=== PATIENT | male | born 1980 | race Caucasian/White ===

== ENCOUNTER → 2018-11-04 | Outpatient (CLI) | payer BC ==
--- NOTE | 2018-11-04 19:20 | Diagnostic Imaging Report ---
EXAMINATION: Modified barium swallow. INDICATION: Difficulty swallowing. This study was performed in the presence of the speech pathologist, Brooke. The patient was given barium in different substances to swallow. This included thin, apple sauce, puree, mechanical soft, and chopped meat. The patient was also given a barium impregnated cracker to swallow. He was able to swallow the materials without difficulty. There was no aspiration or penetration. IMPRESSION: The patient exhibits a normal swallowing mechanism. There is no evidence for aspiration or penetration. Dictated by: Dictated on workstation # [id number]
== END ==
LOC: RAD 10:08
PROVIDERS: ATTEND Family Medicine
DX: R13.10 Dysphagia, unspecified (principal)
CPT/HCPCS: 74230

== ENCOUNTER → 2019-08-15 | Outpatient (CLI) | payer BC ==
--- NOTE | 2019-08-15 17:46 | Diagnostic Imaging Report ---
PATIENT HISTORY: Dyspnea, cough. TECHNIQUE: Two views of the chest. COMPARISON: None. FINDINGS: The lung volumes are normal. No focal consolidation is seen. No large pleural effusion or pneumothorax is seen. The cardiomediastinal silhouette is normal in size and contour. No acute osseous abnormality is seen. IMPRESSION: No acute pulmonary abnormality seen. Dictated by: Dictated on workstation # [id number]
== END ==
LOC: RAD 16:56
PROVIDERS: ATTEND Nurse Practitioner Family
DX: R06.00 Dyspnea, unspecified (principal); R05 Cough
CPT/HCPCS: 71046

== ENCOUNTER 2020-12-10 20:34 | Emergency (ER) | payer BC ==
[~2020-12-10] VITALS: Ht 182.8 cm; Wt 81.6 kg
[2020-12-10 20:54] LABS: BASOPHILS # (AUTO) 0.1 10^3/uL (0.0-0.1); BASOPHILS % (AUTO) 1 % (0-10); EOSINOPHILS # (AUTO) 0.2 10^3/uL (0.0-0.3); EOSINOPHILS % (AUTO) 3 % (0-10); HEMATOCRIT 46 % (40-54); LYMPHOCYTES # (AUTO) 2.4 10^3/uL (1.0-4.0); LYMPHOCYTES % (AUTO) 27 % (12-44); MEAN CORPUSCULAR HEMOGLOBIN 31 pg (25-34); MEAN CORPUSCULAR HGB CONC 35 g/dL (32-36); MEAN CORPUSCULAR VOLUME 89 fL (80-99); MEAN PLATELET VOLUME 9.1 fL (9.0-12.2); MONOCYTES # (AUTO) 0.6 10^3/uL (0.0-1.0); MONOCYTES % (AUTO) 7 % (0-12); NEUTROPHILS # (AUTO) 5.5 10^3/uL (1.8-7.8); NEUTROPHILS % (AUTO) 62 % (42-75); PLATELET COUNT 359 10^3/uL (130-400); WHITE BLOOD COUNT 8.8 10^3/uL (4.3-11.0)
--- NOTE | 2020-12-10 20:56 | ED Chest Pain ---
General Chief Complaint: Chest Pain Stated Complaint: CP, TUNNEL VISION Source: patient Exam Limitations: no limitations History of Present Illness Date Seen by Provider: Dec 10, 2020 Time Seen by Provider: 20:40 Initial Comments Patient presents to the ER by private conveyance with chief complaint couple hours ago he was driving his child home on the road and he felt an asthma attack tightness of chest and shortness of air. He took a few puffs of albuterol and then he said he felt his vision narrow and had some tingling and pain in his left shoulder/anterior chest. He ended up having to take a second round of albuterol after he got home. He says in the past when he takes his albuterol he will get visual narrowing and sometimes even blacked out. 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 No history of coronary disease. No history of early onset coronary disease in the family. His mother is with pulmonary embolisms. He thinks he may have had Covid in August but never got tested. He did get his vaccinations for COVID-19 a few weeks ago. No fevers chills cough. He is no longer having shortness of air. No tingling or numbness in the fingers or perioral area. He does not smoke drink or use drugs. No history of coronary artery disease, hypertension, hyperlipidemia, diabetes. Allergies and Home Medications Allergies Coded Allergies: glycerin (Verified Allergy, Mild, pos on allergy testing, 12/10/20) Patient Home Medication List Home Medication List Reviewed: Yes Review of Systems Review of Systems Constitutional: No chills; dizziness; No fever, No malaise EENTM: No Blurred Vision, No Double Vision Respiratory: Denies Cough; Shortness of Air, Wheezing Cardiovascular: See HPI, Chest Pain; Denies Edema, Denies Irregular Heart Rate, Denies Palpitations, Denies Syncope Gastrointestinal: Denies Abdomen Distended, Denies Abdominal Pain, Denies Nausea Genitourinary: Denies Burning, Denies Discharge Musculoskeletal: No back pain, No joint pain Psychiatric/Neurological: Anxiety; Denies Depressed All Other Systems Reviewed Negative Unless Noted: Yes Past Nlrtddd-Tbslau-Acvljz Hx Patient Social History Alcohol Use: Denies Use Drug of Choice: Denies Smoking Status: Never a Smoker Physical Exam Vital Signs Vital Signs - First Documented 12/10/20 20:39 Temp 36.6 Pulse 127 Resp 28 B/P (MAP) 172/120 (137) Pulse Ox 97 O2 Delivery Room Air Capillary Refill : Height, Weight, BMI Height: '" Weight: lbs. oz. kg; BMI Method: General Appearance: WD/WN, Anxious HEENT: PERRL/EOMI, Pharynx Normal, Moist Mucous Membranes Neck: Full Range of Motion, Normal Inspection, Non Tender Respiratory: No Chest Non Tender (Chest discomfort reproduced by direct palpation and movement of his left arm.); Lungs Clear, Normal Breath Sounds, No Accessory Muscle Use, No Respiratory Distress (100% on room air with respiratory rate of 16-18) Cardiovascular: Regular Rate, Rhythm, Normal Peripheral Pulses Gastrointestinal: Normal Bowel Sounds, Non Tender, Soft Extremity: Normal Capillary Refill, Normal Inspection, Normal Range of Motion, No Pedal Edema Neurologic/Psychiatric: Alert, Oriented x3 Skin: Normal Color, Warm/Dry Progress/Results/Core Measures Results/Orders Lab Results Laboratory Tests Test 12/10/20 20:45 12/10/20 20:48 12/10/20 22:35 Range/Units White Blood Count 8.8 4.3-11.0 10^3/uL Red Blood Count 5.20 4.30-5.52 10^6/uL Hemoglobin 16.0 13.3-17.7 g/dL Hematocrit 46 40-54 % Mean Corpuscular Volume 89 80-99 fL Mean Corpuscular Hemoglobin 31 25-34 pg Mean Corpuscular Hemoglobin Concent 35 32-36 g/dL Red Cell Distribution Width 12.0 10.0-14.5 % Platelet Count 359 130-400 10^3/uL Mean Platelet Volume 9.1 9.0-12.2 fL Immature Granulocyte % (Auto) 0 % Neutrophils (%) (Auto) 62 42-75 % Lymphocytes (%) (Auto) 27 12-44 % Monocytes (%) (Auto) 7 0-12 % Eosinophils (%) (Auto) 3 0-10 % Basophils (%) (Auto) 1 0-10 % Neutrophils # (Auto) 5.5 1.8-7.8 10^3/uL Lymphocytes # (Auto) 2.4 1.0-4.0 10^3/uL Monocytes # (Auto) 0.6 0.0-1.0 10^3/uL Eosinophils # (Auto) 0.2 0.0-0.3 10^3/uL Basophils # (Auto) 0.1 0.0-0.1 10^3/uL Immature Granulocyte # (Auto) 0.0 0.0-0.1 10^3/uL Prothrombin Time 12.8 12.2-14.7 SEC INR Comment 0.9 0.8-1.4 Activated Partial Thromboplast Time 30 24-35 SEC D-Dimer <= 0.27 0.00-0.49 UG/ML Sodium Level 141 135-145 MMOL/L Potassium Level 3.6 3.6-5.0 MMOL/L Chloride Level 102 98-107 MMOL/L Carbon Dioxide Level 23 21-32 MMOL/L Anion Gap 16 H 5-14 MMOL/L Blood Urea Nitrogen 10 7-18 MG/DL Creatinine 0.99 0.60-1.30 MG/DL Estimat Glomerular Filtration Rate > 60 BUN/Creatinine Ratio 10 Glucose Level 103 70-105 MG/DL Calcium Level 9.3 8.5-10.1 MG/DL Corrected Calcium 8.9 8.5-10.1 MG/DL Magnesium Level 2.1 1.6-2.4 MG/DL Total Bilirubin 0.6 0.1-1.0 MG/DL Aspartate Amino Transf (AST/SGOT) 22 5-34 U/L Alanine Aminotransferase (ALT/SGPT) 31 0-55 U/L Alkaline Phosphatase 71 40-136 U/L Myoglobin 57.8 10.0-92.0 NG/ML Troponin I < 0.028 < 0.028 <0.028 NG/ML Total Protein 7.8 6.4-8.2 GM/DL Albumin 4.5 3.2-4.5 GM/DL Blood Gas Puncture Site RIGHT RADIAL Blood Gas Patient Temperature 36.6 Arterial Blood pH 7.48 H 7.37-7.43 Arterial Blood Partial Pressure CO2 34 L 35-45 MMHG Arterial Blood Partial Pressure O2 111 H 79-93 MMHG Arterial Blood HCO3 25 23-27 MMOL/L Arterial Blood Total CO2 26.4 21.0-31.0 MMOL/L Arterial Blood Oxygen Saturation 99 94-100 % Arterial Blood Base Excess 2.0 -2.5-2.5 MMOL/L Zion Test YES-POS Blood Gas Ventilator Setting NO Blood Gas Inspired Oxygen ROOM AIR My Orders Orders - JOE WILLIS Cbc With Automated Diff (12/10/20 20:48) Magnesium (12/10/20 20:48) Chest 1 View, Ap/Pa Only (12/10/20 20:48) Ekg Tracing (12/10/20 20:48) Comprehensive Metabolic Panel (12/10/20 20:48) Myoglobin Serum (12/10/20 20:48) Protime With Inr (12/10/20 20:48) Partial Thromboplastin Time (12/10/20 20:48) O2 (12/10/20 20:48) Monitor-Rhythm Ecg Trace Only (12/10/20 20:48) Lipid Panel (12/11/20 06:00) Ed Iv/Invasive Line Start (12/10/20 20:48) Troponin I (12/10/20 20:48) Aspirin Chewable Tablet (Baby Aspirin Ch (12/10/20 21:00) Nitroglycerin 0.4 Mg Btl 25's (Nitrostat (12/10/20 21:00) Arterial Blood Gas (12/10/20 20:49) Fibrin Degradation Products (12/10/20 20:45) Troponin I (12/10/20 22:30) Ed Iv/Invasive Line Start (12/10/20 21:37) Ns Iv 500 Ml (Sodium Chloride 0.9%) (12/10/20 21:45) Medications Given in ED Current Medications Medications Dose Ordered Sig/Brenda Route Start Time Stop Time Status Last Admin Dose Admin Aspirin 324 mg ONCE ONCE PO 12/10/20 21:00 12/10/20 21:01 DC 12/10/20 21:12 324 MG Sodium Chloride 500 ml @ 0 mls/hr Q0M ONCE IV 12/10/20 21:45 12/10/20 21:46 DC 12/10/20 21:44 0 MLS/HR Vital Signs/I&O 12/10/20 20:39 Temp 36.6 Pulse 127 Resp 28 B/P (MAP) 172/120 (137) Pulse Ox 97 O2 Delivery Room Air Progress Progress Note : Time: 20:53 Progress Note With his symptoms seem to get worse after the albuterol I would suspect he is having a little hypoxia relatively and blew off all of his CO2 causing him to be in an alkalotic state. We will get an ABG and some labs. We will give him some aspirin to control for possible coronary disease and plan on repeating a delta troponin in 2 to 3 hours which would be about 5 hours after symptoms start with his first troponin is negative. We will obtain a chest x-ray and try some nitroglycerin. He says he is never had any reactions to glycerin and foods that he is eating so I think he will be fine taking nitroglycerin. His blood pressure significantly elevated 170/100. He appears anxious. Another possibility could be linked to his esophagitis which may improve with nitroglycerin. Middle suspicion for pulmonary embolism since he has some family history and may have had a viral pneumonia a few months ago so we will get a D-dimer. Initial ECG Impression Date: Dec 10, 2020 Initial ECG Impression Time: 20:41 Initial ECG Rate: 101 Initial ECG Rhythm: S.Tach Initial ECG Intervals: Normal Initial ECG Impression: Normal Initial ECG Comparisson: No Previous ECG Available Comment Normal sinus tachycardia without clinically relevant ST elevation or depression. Some mild respiratory artifact. Diagnostic Imaging Diagonstic Imaging: Xray Plain Films/CT/US/NM/MRI: chest Comments No acute cardiopulmonary processes noted. 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 [facility] [place], [place] NAME: LULA LOBO [facility] REC#: [id number] PT STATUS: REG ER : 1980 PHYSICIAN: JOE WILLIS MD ADMIT DATE: 12/10/20/ER Signed Date of Exam:12/10/20 CHEST 1 VIEW, AP/PA ONLY CHEST 1 VIEW, AP/PA ONLY Indication: Chest pain. Comparison: 08/15/2019 Findings: No focal airspace disease in the visualized lungs. Please note that the posterior lower lobes are poorly evaluated by portable radiography. No pleural effusion or pneumothorax. Normal cardiomediastinal silhouette. Impression: 1. No acute cardiopulmonary process by portable radiography. Dictated by: Dictated on workstation # [id number] Dict: 12/10/202106 Trans: 12/10/202106 [facility] [id number] Interpreted by: CHACHA KONG MD Electronically signed by: CHACHA KONG MD 12/10/202106 Reviewed: Reviewed by Me Departure Impression Primary Impression: Asthma attack Qualified Codes: J45.901 - Unspecified asthma with (acute) exacerbation Additional Impression: Panic attack Disposition: 01 HOME, SELF-CARE Condition: Stable Departure-Patient Inst. Decision time for Depature: 23:25 Referrals: EDDIE GOODMAN MD, RACHEL L MD (PCP/Family) Primary Care Physician Patient Instructions: Chest Pain That Is Not Caused by the Heart (DC), Anxiety, Adult (DC) Add. Discharge Instructions: I suspect that the combination of your caffeine, asthma medications and anxiety drove the CO2 levels low putting you in an alkalotic state which made you feel like a panic attack. It is important to control your breathing and slow it down when you are managing your asthma. Follow-up with your primary care doctor in the next 2 to 4 weeks to discuss this and make sure you are on appropriate treatment. If you would like to call for an appointment in the next 1 [address] Schwab, cardiology you may call him at his clinic and request an appointment tomorrow morning. All discharge instructions reviewed with patient and/or family. Voiced understanding. Copy Copies To 1: EDDIE GOODMAN MD, TITUS J Dec 10, 2020 20:56
[2020-12-10] MEDS ORDERED: ASPIRIN 81 MG CHEW (CHILDREN'S ASA) PO ONE (21:00)
[2020-12-10] MEDS ORDERED: NITROGLYCERIN 0.4 MG SL TABS BTL 25'S SL PRN (21:00)
[2020-12-10 21:02] LABS: ABG OXYGEN SATURATION 99 % (94-100); ABG PCO2 34 MMHG (35-45); ABG PH 7.48 (7.37-7.43); ABG PO2 111 MMHG (79-93); ABG TCO2 26.4 MMOL/L (21.0-31.0)
[2020-12-10 21:05] LABS: ALBUMIN 4.5 GM/DL (3.2-4.5)
[2020-12-10 21:06] LABS: ALLENS TEST YES-POS; INSPIRED O2 ROOM AIR; PATIENT TEMP 36.6; VENTILATOR NO
[2020-12-10 21:06] LABS: CHLORIDE 102 MMOL/L (98-107); POTASSIUM 3.6 MMOL/L (3.6-5.0); SODIUM 141 MMOL/L (135-145)
[2020-12-10 21:07] LABS: CALCIUM 9.3 MG/DL (8.5-10.1)
[2020-12-10 21:08] LABS: GLUCOSE 103 MG/DL (70-105); TOTAL PROTEIN 7.8 GM/DL (6.4-8.2)
[2020-12-10 21:09] LABS: CARBON DIOXIDE 23 MMOL/L (21-32)
--- NOTE | 2020-12-10 21:09 | Diagnostic Imaging Report ---
CHEST 1 VIEW, AP/PA ONLY Indication: Chest pain. Comparison: 08/15/2019 Findings: No focal airspace disease in the visualized lungs. Please note that the posterior lower lobes are poorly evaluated by portable radiography. No pleural effusion or pneumothorax. Normal cardiomediastinal silhouette. Impression: 1. No acute cardiopulmonary process by portable radiography. Dictated by: Dictated on workstation # [id number]
[2020-12-10 21:10] LABS: BILIRUBIN,TOTAL 0.6 MG/DL (0.1-1.0)
[2020-12-10 21:11] LABS: ALKALINE PHOSPHATASE 71 U/L (40-136)
[2020-12-10 21:12] LABS: CREATININE SERUM 0.99 MG/DL (0.60-1.30); GFR ESTIMATED > 60
[2020-12-10 21:13] LABS: BUN/CREATININE RATIO 10
[2020-12-10 21:15] LABS: ALANINE AMINOTRANSFERASE 31 U/L (0-55); MAGNESIUM 2.1 MG/DL (1.6-2.4)
[2020-12-10 21:25] LABS: FIBRIN DEGRADATION PRODUCTS <= 0.27 UG/ML (0.00-0.49); INR 0.9 (0.8-1.4); PARTIAL THROMBOPLASTIN TIME 30 SEC (24-35); PROTHROMBIN TIME PATIENT 12.8 SEC (12.2-14.7)
[2020-12-10] MEDS ORDERED: NS IV 500 ML 500 ML IV ONE (21:45)
[2020-12-10 23:35] VITALS: BP 132/93
== END 2020-12-10 23:35 | disposition home or self-care (01) ==
LOC: EDUNIT# 20:34 → ER 20:37
DX: J45.901 Unspecified asthma with (acute) exacerbation (principal); F41.0 Panic disorder [episodic paroxysmal anxiety]
CPT/HCPCS: 36415; 71045; 80053; 82805; 83735; 83874; 84484; 85025; 85379; 85610; 85730; 93005; 93041

== ENCOUNTER → 2021-04-08 | Outpatient (CLI) | payer BC ==
[2021-04-08 09:23] VITALS: BP 124/79
== END ==
LOC: CARD 09:00
PROVIDERS: ATTEND Nurse Practitioner Family
DX: R07.89 Other chest pain (principal)
CPT/HCPCS: 93306; 93351

== ENCOUNTER 2022-12-21 20:19 | Day surgery (SDC) | payer BC ==
--- NOTE | 2022-12-21 20:37 | ED GI ---
General Chief Complaint: Foreign Body Stated Complaint: LODGED FOOD Source of Information: Patient History of Present Illness Date Seen by Provider: Dec 21, 2022 Time Seen by Provider: 20:31 Initial Comments PT ARRIVES VIA POV FROM HOME STATES THAT HE HAS FOOD STUCK IN HIS ESOPHAGUS ATE A POP TART AROUND 1699 AND DID NOT HAVE ANY PROBLEMS AROUND 1999, HE ATE CINNAMON ROLLS FROM [employer], AND SOME PEANUTS--AND FOOD IS NOW STUCK, AND HE CANNOT SWALLOW SALIVA--IS CONSTANTLY SPITTING OUT SALIVA. HE IS VERY ANXIOUS AND CONCERNED HE WILL ASPIRATE. HE IS NOT COUGHING OR HAVING SHORTNESS OF BREATH OR WHEEZING. HE HAS HAD THIS SEVERAL TIMES IN THE PAST, USUALLY WILL EVENTUALLY PASS ON IT'S OWN HE DID HAVE TO HAVE REMOVAL OF FOOD BOLUS AND ESOPHAGEAL DILATION ONCE--IN 2009. HE WAS TOLD SEVERAL YEARS AGO THAT HE HAS EOSINOPHILIC ESOPHAGITIS. HE BELIEVES THAT CORN WORSENS THIS PROBLEM. HE TAKES OMEPRAZOLE DAILY NO OTHER CHRONIC PROBLEMS. PCP: DR. FISHER--RECENTLY STARTED SEEING HER Allergies and Home Medications Allergies Coded Allergies: glycerin (Verified Allergy, Mild, pos on allergy testing, 12/10/20) Patient Home Medication List Home Medication List Reviewed: Yes Review of Systems Review of Systems Constitutional: see HPI Respiratory: No Symptoms Reported; Denies Cough, Denies Shortness of Air Cardiovascular: No Symptoms Reported Gastrointestinal: See HPI Musculoskeletal: no symptoms reported Psychiatric/Neurological: See HPI, Anxiety Past Dozcpsh-Nklkql-Iqhsdg Hx Patient Social History Tobacco Use?: No Substance use?: No Alcohol Use?: No Seasonal Allergies Seasonal Allergies: Yes Past Medical History Surgeries: Yes (dental, colonoscopy, EGD'S WITH ESOPHAGEAL DILATION) Respiratory: Yes Asthma Cardiac: No Neurological: No Genitourinary: No Gastrointestinal: Yes (ESOPHAGEAL DILATION; EOSINOPHILIC ESOPHAGITIS) Gastroesophageal Reflux, Esophagitis Musculoskeletal: No Endocrine: No HEENT: No Cancer: No Psychosocial: No Integumentary: No Blood Disorders: No Physical Exam Vital Signs Vital Signs - First Documented Capillary Refill : Height/Weight/BMI Height: '" Weight: lbs. oz. 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 tested, no motor/sensory deficits, alert, oriented x 3 Skin: normal color, warm/dry Progress/Results/Core Measures Results/Orders My Orders Orders - OSCAR MORENO DO Ed Iv/Invasive Line Start (12/21/22 20:36) Monitor-Rhythm Ecg Trace Only (12/21/22 20:36) Glucagon Emergency Kit (Glucagon Emergen (12/21/22 20:45) Glucagon Emergency Kit (Glucagon Emergen (12/21/22 21:00) Medications Given in ED Current Medications Medications Dose Ordered Sig/Brenda Route Start Time Stop Time Status Last Admin Dose Admin Glucagon 1 mg ONCE ONCE IV 12/21/22 20:45 12/21/22 20:46 DC 12/21/22 20:46 1 MG Glucagon 1 mg ONCE ONCE IV 12/21/22 21:00 12/21/22 21:01 DC 12/21/22 21:04 1 MG Vital Signs/I&O 12/21/22 12/21/22 20:31 20:31 Temp 36.8 Pulse 96 Resp 16 B/P (MAP) 150/111 (124) Pulse Ox 97 O2 Delivery Room Air Room Air Progress Progress Note : Progress Note GIVEN GLUCAGON X 2 DOSES--NO RELIEF ALSO GIVEN PEPCID FOR HISTORY OF EOSINOPHILIC ESOPHAGITIS NO DETERIORATION IN PT'S CONDITION. DISCUSSED ANTICIPATED COURSE, NEED FOR ENDOSCOPY AND PT IS AGREEABLE TO PLAN Departure Communication (Admissions) 2121--SPOKE WITH DR. GABRIEL, WILL BE IN TO SEE PT. ADVISES TO HAVE SCREENER OPERATOR CALL IN GI LAB CREW. 2138--DR. GABRIEL HERE 2205--GI LAB STAFF HERE. Impression Primary Impression: Esophageal obstruction due to food impaction Additional Impression: HX OF EOSINOPHILIC ESOPHAGITIS Disposition: ADMITTED INPATIENT (TO GI LAB/OR) Condition: Stable Admissions Decision to Admit Reason: Admit from ER (General) (TO SURGERY/GI LAB) Decision to Admit/Date: Dec 21, 2022 Time/Decision to Admit Time: 21:25 Departure-Patient Inst. Referrals: MARGARET MCMILLAN MD (PCP/Family) Primary Care Physician OSCAR MORENO DO Dec 21, 2022 20:37
[2022-12-21] MEDS ORDERED: GLUCAGON EMERGENCY 1 MG/KIT IV ONE ×2 (20:45→21:00)
[2022-12-21] MEDS ORDERED: FAMOTIDINE 20MG/2ML IV (PEPCID) IVP ONE (21:45)
[2022-12-21] MEDS ORDERED: ONDANSETRON 4 MG/2 ML (SDV) Z0FRAN ONE (22:00)
[2022-12-21] MEDS ORDERED: SUCCINYLCHOLINE INJ 20 MG/1 ML 10 ML VIAL ONE (22:00)
[2022-12-21] MEDS ORDERED: MIDAZOLAM 2 MG/2 ML (VERSED) VIAL ONE (22:00)
[2022-12-21] MEDS ORDERED: fentaNYL INJ 100 MCG/2 ML AMP ONE (22:00)
[2022-12-21] MEDS ORDERED: LIDOCAINE PF 2% 5 ML (XYLOCAINE) VIAL ONE (22:00)
[2022-12-21] MEDS ORDERED: proPOfol 200 MG/20 ML (DIPRIVAN) VIAL IV ONE (22:00)
--- NOTE | 2022-12-21 22:30 | Consultation - Surgery ---
History of Present Illness History of Present Illness Patient Consulted On(rik/time) 12/21/22 22:25 Date Seen by Provider: Dec 21, 2022 Time Seen by Provider: 22:25 History of Present Illness Consult requested for food bolus. Patient is a 42 year old male who was eating cinnamon roll and peanuts and not able to get them to go down. Unable to swallow secretions and having to spit them out. No abdominal pain. Has had occurred previously where had to have endoscopy. Had occurred randomly but able to get to go down. Typically with breads. Denies n/v fever sweats chills shortness of breath or chest pain. Allergies and Home Medications Allergies Coded Allergies: glycerin (Verified Allergy, Mild, pos on allergy testing, 12/10/20) Patient Home Medication List Home Medication List Reviewed: Yes (claritin and omeprazole) Past Bswuhpc-Rzrelt-Stctqw Hx Patient Social History Drug of Choice: Denies Smoking Status: Never a Smoker Recent Hopitalizations: No Alcohol Use?: No Seasonal Allergies Seasonal Allergies: Yes Surgeries History of Surgeries: Yes (dental, colonoscopy, EGD'S WITH ESOPHAGEAL DILATION) Respiratory History of Respiratory Disorde: Yes Respiratory Disorders: Asthma Cardiovascular History of Cardiac Disorders: No Neurological History of Neurological Disord: No Genitourinary History of Genitourinary Disor: No Gastrointestinal History of Gastrointestinal Di: Yes (ESOPHAGEAL DILATION; EOSINOPHILIC ESOPHAGITIS) Gastrointestinal Disorders: Gastroesophageal Reflux, Esophagitis Musculoskeletal History of Musculoskeletal Dis: No Endocrine History of Endocrine Disorders: No HEENT History of HEENT Disorders: No Cancer History of Cancer: No Psychosocial History of Psychiatric Problem: No Integumentary History of Skin or Integumenta: No Blood Transfusions History of Blood Disorders: No Reviewed Nursing Assessment Reviewed/Agree w Nursing PMH: Yes Family Medical History Significant Family History: No Pertinent Family Hx Review of Systems-General Constitutional: No chills, No diaphoresis EENTM: No blurred vision, No double vision Respiratory: No cough, No dyspnea on exertion Cardiovascular: No chest pain, No palpitations Gastrointestinal: No abdominal pain; nausea, vomiting Genitourinary: No decreased output, No discharge Musculoskeletal: No back pain, No joint pain Skin: No change in color, No change in hair/nails Psychiatric/Neurological: Denies Anxiety, Denies Depressed, Denies Emotional Problems All Other Systems Reviewed Negative Unless Noted: Yes (Negative excepted noted.) Physical Exam-General Problems Physical Exam Vital Signs Vital Signs - First Documented Capillary Refill : Less Than 3 Seconds General Appearance: WD/WN, no apparent distress, thin HEENT: PERRL/EOMI, normal ENT inspection Neck: non-tender, supple Respiratory: chest non-tender, no respiratory distress, no accessory muscle use Cardiovascular: regular rate, rhythm, no JVD Gastrointestinal: non tender, soft Rectal: deferred Back: no CVA tenderness, no vertebral tenderness Extremities: non-tender, normal inspection Neurologic/Psychiatric: alert, normal mood/affect, oriented x 3 Skin: normal color, warm/dry Lymphatic: no adenopathy Assessment/Plan Assessment/Plan Assessment/Plan food bolus hx eosinophilic esophagitis patient discussed risks and benefits of egd and all other indicated procedures he understands and wishes to proceed. discussed may need repeat egd in near future to dilate or biopsy if needed NPO To OR for EGD. Liquids 2 days then slowly advance as tolerates after procedure. DANNY GABRIEL DO Dec 21, 2022 22:30
[2022-12-21 22:35] VITALS: BP 160/95
--- NOTE | 2022-12-21 22:54 | Discharge Inst-Simple/Standard ---
Discharge Inst-Standard Patient Instructions/Follow Up Plan of Care/Instructions/FU: 1-2 weeks sharon Activity as Tolerated: Yes Discharge Diet: Liquid Diet (2 days then slowly advance as tolerates.) DANNY GABRIEL DO Dec 21, 2022 22:54
== END 2022-12-21 23:10 | disposition home or self-care (01) ==
LOC: EDUNIT# 20:19 → ER 20:22 → SDC 21:33
PROVIDERS: ATTEND Surgery
DX: T18.128A Food in esophagus causing other injury, initial encounter (principal); K20.0 Eosinophilic esophagitis
CPT/HCPCS: 93041

== ENCOUNTER 2023-01-20 05:41 | Outpatient (CLI) | payer BC ==
[~2023-01-20] VITALS: Ht 182.9 cm; Wt 83.9 kg
[2023-01-21] MEDS ORDERED: CHLO-159 PO (11:22)
[2023-01-21] MEDS ORDERED: OMEP20TA56 PO (11:22)
[2023-01-21] MEDS ORDERED: RT-ALBUINH INH (11:22)
[2023-01-21] MEDS ORDERED: FLUT1DIS27 IH (11:22)
[2023-01-21] MEDS ORDERED: CETI10TA17 PO (11:22)
[2023-01-21] MEDS ORDERED: MULT-1136 PO (11:22)
[2023-01-21] MEDS ORDERED: FLUT9.9S NS (11:22)
== END 2023-01-21 11:27 | disposition home or self-care (01) ==
LOC: PREOP 05:41
PROVIDERS: ATTEND Surgery
DX: Z01.818 Encounter for other preprocedural examination (principal)

== ENCOUNTER → 2023-01-20 | Outpatient (CLI) | payer BC ==
[~2023-01-20] MED LIST: BARIUM for suspension 96% w/w (Vanilla Silq Medium Density) PO ONE; BARIUM for suspension 98% w/w (Vanilla Silq High Density) PO ONE; CETI10TA17 PO; CHLO-159 PO; FLUT1DIS27 IH; FLUT9.9S NS; MULT-1136 PO; OMEP20TA56 PO; RT-ALBUINH INH
--- NOTE | 2023-01-20 16:51 | Diagnostic Imaging Report ---
INDICATION: Difficulty swallowing and esophagitis. Patient ingested effervescent crystals followed by liquid barium under fluoroscopic observation. Prior to contrast, strategic accounts manager radiograph reveals no definite mediastinal abnormality. Swallow motion is unremarkable without evidence of aspiration or penetration. The esophagus is of normal caliber. No persistent stricture or mass is seen. No mucosal irregularity is detected. With Valsalva maneuver, there is mild sliding-type hiatal hernia with only minimal gastroesophageal reflux. IMPRESSION: Mild sliding-type hiatal hernia occurred with Valsalva maneuver. Otherwise, esophagus is unremarkable in appearance. Dictated by: Dictated on workstation # [id number]
== END ==
LOC: RAD 10:00
PROVIDERS: ATTEND Nurse Practitioner
DX: K44.9 Diaphragmatic hernia without obstruction or gangrene (principal)
CPT/HCPCS: 74220

== ENCOUNTER 2023-02-02 07:28 | Day surgery (SDC) | payer BC ==
[~2023-02-02] VITALS: Ht 182.9 cm; Wt 83.9 kg
[~2023-02-02 07:28] MED LIST changes: -BARIUM for suspension 96% w/w (Vanilla Silq Medium Density) PO ONE; -BARIUM for suspension 98% w/w (Vanilla Silq High Density) PO ONE
[2023-02-02] MEDS ORDERED: LACTATED RINGERS 1,000 ML IV STA (07:39)
[2023-02-02 07:45] VITALS: BP 119/83
[2023-02-02] MEDS ORDERED: HURRICAINE EXT TUBE (BENZOCAINE) XX PRN (07:45)
[2023-02-02] MEDS ORDERED: PROPOFOL INJECTION 50 ML IV ONE (09:20)
[2023-02-02] MEDS ORDERED: MIDAZOLAM 2 MG/2 ML (VERSED) VIAL ONE (09:20)
[2023-02-02 09:35] VITALS: BP 114/68
[2023-02-02] MEDS ORDERED: SUCR1TAB36 PO (09:38)
[2023-02-02] MEDS ORDERED: PANT40TA2 PO (09:38)
--- NOTE | 2023-02-02 09:39 | Discharge Inst-Simple/Standard ---
Discharge Inst-Standard Discharge Medications New, Converted or Re-Newed RX: Transmitted to Pharmacy Patient Instructions/Follow Up Plan of Care/Instructions/FU: 2 weeks Anthony Activity as Tolerated: Yes Discharge Diet: Regular Diet DANNY GABRIEL DO February 02, 2023 09:39
[2023-02-02 09:40] VITALS: BP 114/60
--- NOTE | 2023-02-02 09:41 | Progress Note-Post Operative ---
Post-Operative Progess Note Surgeon (s)/Branch Office Manager (s) Surgeon DANNY GABRIEL DO Branch Office Manager: na Pre-Operative Diagnosis dysphagia Post-Operative Diagnosis reflux esophagitis and small ulceration at ge Procedure & Operative Findings Date of Procedure 02/02/23 Procedure Performed/Findings egd c dilation and biopsies Anesthesia Type per multiple drum sander Estimated Blood Loss Estimated blood loss (mL): none Specimens/Packing Specimens Removed antrum, ge DANNY GABRIEL DO February 02, 2023 09:41
[2023-02-02 09:44] VITALS: BP 109/64
[2023-02-02 09:50] VITALS: BP 107/62
[2023-02-02 10:10] VITALS: BP 107/62
--- NOTE | 2023-02-02 14:40 | Anesthesia-General Post-Op ---
MAC Patient Condition Mental Status/LOC: Same as Preop Cardiovascular: Satisfactory Nausea/Vomiting: Absent Respiratory: Satisfactory Pain: Controlled Complications: Absent Post Op Complications Complications None Follow Up Care/Instructions Patient Instructions None needed. Anesthesiology Discharge Order Discharge Order Patient is doing well, no complaints, stable vital signs, no apparent adverse anesthesia problems. No complications reported per nursing. ZULEIKA LOBO CRNA February 02, 2023 14:40
--- NOTE | 2023-02-02 15:15 | OPERATIVE REPORT ---
DATE OF SERVICE: 02/02/2023 PREOPERATIVE DIAGNOSIS: Dysphagia. POSTOPERATIVE DIAGNOSES: Reflux esophagitis and a small ulceration in GE junction. PROCEDURE: EGD dilatation to 15 mm, biopsies. 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 ESTIMATED BLOOD LOSS: None. COMPLICATIONS: None. INDICATIONS: The patient is a 42-year-old male with history of dysphagia. He understands risks and benefits of procedure and wishes to proceed. Consent was signed in chart. DESCRIPTION OF PROCEDURE: The patient was taken to the endoscopy suite, placed in left lateral recumbent position. Timeout was performed. Scope was inserted in the mouth, down the esophagus, stomach and into the duodenum without difficulty. No polyps, masses or ulcerations within the duodenum. Scope was slowly retracted back into stomach where it was further insufflated. Slight erythematous changes. No masses or ulcerations. Biopsy of the antrum was obtained. Couple of small benign-appearing polyps present. Scope was retroflexed noting no other pathology. Scope was returned to its normal position. The scope was then slowly withdrawn until distal esophagus. Some changes of reflux esophagitis. The distal esophagus had some slight narrowing. A balloon was inserted and was dilated up to 15 mm. In the GE junction, there was small ulceration as well, so did not want to proceed past 15 mm. Biopsy of the GE junction was obtained. Scope was slowly retracted back until completely removed, noting no other pathology. The patient tolerated the procedure well, no complications, taken to recovery room in stable condition. RECOMMENDATIONS: The patient will stop omeprazole. We will start Protonix 40 mg daily and sucralfate 1 gram 4 times a day. We will await biopsy results. Would consider repeating endoscopy if continues to have difficulties with dysphagia. Await biopsy results. 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
== END 2023-02-02 10:33 | disposition home or self-care (01) ==
LOC: ENDO 07:28
PROVIDERS: ATTEND Surgery
DX: K21.00 Gastro-esophageal reflux disease with esophagitis, without bleeding (principal); K25.9 Gastric ulcer, unspecified as acute or chronic, without hemorrhage or perforation; K22.10 Ulcer of esophagus without bleeding; K31.7 Polyp of stomach and duodenum; K29.50 Unspecified chronic gastritis without bleeding; G47.33 Obstructive sleep apnea (adult) (pediatric); Z87.19 Personal history of other diseases of the digestive system
CPT/HCPCS: 88305

== ENCOUNTER 2023-03-17 06:27 | Outpatient (CLI) | payer BC ==
[~2023-03-17] VITALS: Ht 182.9 cm; Wt 83.9 kg
[~2023-03-17 06:27] MED LIST changes: +PANT40TA2 PO; +SUCR1TAB36 PO
[2023-03-22] MEDS ORDERED: CHOL400T29 PO (13:05)
== END 2023-03-22 13:13 | disposition home or self-care (01) ==
LOC: PREOP 06:27
PROVIDERS: ATTEND Surgery
DX: Z01.818 Encounter for other preprocedural examination (principal)